=== PATIENT | female | born 1965 | race Caucasian/White ===

== ENCOUNTER 2017-05-03 14:22 | Emergency (ER) | payer OTHER ==
[2017-05-03] MEDS: ASPIRIN 325 MG TAB PO (20:08)
[2017-05-03 20:44] LABS: ADD MAN DIFF? NO
[2017-05-03 20:47] LABS: BASOPHIL # 0.1 10^3/ul (0.0-0.1); BASOPHILS % 0.6 % (0.0-2.0); EOSINOPHILS # 0.3 10^3/ul (0.0-0.5); EOSINOPHILS % 2.7 % (0.0-7.0); HEMATOCRIT 29.6 % (37.0-47.0); HEMOGLOBIN 8.3 g/dl (12.0-16.0); LYMPHOCYTES # 4.4 10^3/ul (0.8-2.9); LYMPHOCYTES % 36.3 % (15.0-51.0); MEAN CORPUSCULAR VOLUME 60.5 fl (82.0-101.0); MEAN PLATELET VOLUME 10.5 fl (7.4-10.4); MONOCYTE # 0.9 10^3/ul (0.3-0.9); MONOCYTES % 7.1 % (0.0-11.0); NEUTROPHIL # 6.4 10^3/ul (1.6-7.5); NEUTROPHILS % 53.1 % (39.0-77.0); PLATELET COUNT 534 10^3/UL (140-415); RED BLOOD COUNT 4.89 10^6/ul (4.20-5.40); RED CELL DISTRIBUTION WIDTH 20.6 % (11.5-14.5)
[2017-05-03 21:07] LABS: ANION GAP 17 (8-16); BLOOD UREA NITROGEN 15 mg/dl (7-20); CALCIUM 9.4 mg/dl (8.4-10.2); CARBON DIOXIDE 27 mmol/L (21-31); CHLORIDE 103 mmol/L (97-110); CREATININE 0.71 mg/dl (0.44-1.00); GLUCOSE 89 mg/dl (70-220); POTASSIUM 3.7 mmol/L (3.5-5.1); SODIUM 143 mmol/L (135-144)
[2017-05-03 21:19] LABS: B-TYPE NATRIURETIC PEPTIDE 56 PG/ML (0-125)
[2017-05-03 21:36] LABS: TROPONIN-I < 0.012 ng/ml (0.00-0.12)
== END 2017-05-03 23:29 | disposition home or self-care (01) ==
LOC: E/R 14:22
DX: D64.9 Anemia, unspecified (principal); R06.02 Shortness of breath; R40.2142 Coma scale, eyes open, spontaneous, at arrival to emergency department; R40.2252 Coma scale, best verbal response, oriented, at arrival to emergency department; R40.2362 Coma scale, best motor response, obeys commands, at arrival to emergency department; Z79.82 Long term (current) use of aspirin
CPT/HCPCS: 36415; 71045; 80048; 83880; 84484; 85025; 93005; 99285-25

== ENCOUNTER 2018-02-21 13:30 | Emergency (ER) | payer OTHER ==
[2018-02-21] MEDS: KETOROLAC 30 MG INJ IM (16:59)
== END 2018-02-21 18:47 | disposition home or self-care (01) ==
LOC: FTE 13:30
DX: S82.62XA Displaced fracture of lateral malleolus of left fibula, initial encounter for closed fracture (principal); W19.XXXA Unspecified fall, initial encounter; Y92.9 Unspecified place or not applicable
CPT/HCPCS: 29515; 73610; 96372; 99284-25

== ENCOUNTER 2018-03-28 11:58 | Emergency (ER) | payer OTHER ==
[2018-03-28] MEDS: predniSONE 20 MG TAB PO (12:21)
[2018-03-28] MEDS: BENZONATATE 100 MG CAP PO (12:39)
== END 2018-03-28 13:01 | disposition home or self-care (01) ==
LOC: FTE 11:58
DX: R05 Cough (principal)
CPT/HCPCS: 71045; 99283-25